=== PATIENT | male | born 1965 | race African-American/Black ===

== ENCOUNTER 2016-03-30 06:06 | Emergency (ER) | payer OTHER ==
[~2016-03-30] VITALS: Ht 177.8 cm; Wt 116.0 kg
[~2016-03-30 06:06] MED LIST: AMLO10 PO; ASPI81CH CHEW; ATOR1TAB18 PO; CALCCHW PO; CARV6.25 PO; DIAZ10 PO; DIPH2%T PO; GABA600T PO; GEMF600 PO; GEMF600T PO; LISI40TA PO; NOVO7030P2 SQ; OXYC15TA PO; PLAV75TA29 PO; [UNRECOGNIZED DRUG - CODE] CHEW; [UNRECOGNIZED DRUG - OTHER] PO; insulin needles SQ
[2016-03-30 06:08] VITALS: BP 141/88; PULSE 89; RESP 18; TEMP 98; O2SAT 98
[2016-03-30] MEDS ORDERED: SODIUM CHLORIDE 0.9% FLUSH 5 ML FLUSH IVF PRN (06:30)
--- NOTE | 2016-03-30 06:42 | PD ---
HPI . Cough Chief Complaint: Respiratory Symptoms Time Seen by Provider: 06:24 Travel History International Travel<30 days: No Contact w/Intl Traveler<30days: No Traveled to known affect area: No History of Present Illness HPI Patient presents with a 3 week history of cough. The cough is productive of clear phlegm. There has been no associated fever. He reports similar problems in the past has been a long time ago. He states that he has used Pro Air in the past but that it has been at least a year since he used it. PFSH Past Medical History Hx Anticoagulant Therapy: Yes (ASA) Asthma: Yes Cancer: No Cardiac Catheterization: Yes (2008) Cardiovascular Problems: Yes ([place], [place]) High Cholesterol: Yes Chest Pain: Yes Coronary Artery Disease: Yes Diabetes: Yes Patient Takes Glucophage: No Diminished Hearing: No Endocrine: Yes Gastrointestinal Disorders: No Glaucoma: No Genitourinary: No Hepatitis: No Hiatal Hernia: No Herniated Disk: Yes Hypertension: Yes Immune Disorder: No Musculoskeletal: Yes (spinal stenosis) Neurologic: No Psychiatric: No Reproductive: No Respiratory: Yes (ASTHMA) Integumentary: No Myocardial Infarction: Yes Thyroid Disease: No Past Surgical History Thoracic Surgery: No Other Surgery: Yes (HERNIA REPAIR) Social History Alcohol Use: No Tobacco Use: Yes (HALF PACK/DAY) Substance Use: No Allergies-Medications (Allergen,Severity, Reaction): Coded Allergies: Advair (Verified Allergy, Severe, HIVE,ITCH, 03/30/16) Bactrim (Verified Allergy, Severe, Rash, 03/30/16) Cortisporin (Verified Allergy, Severe, ears swelling, itch, , 03/30/16) Cortisporin otic Rocephin (Verified Allergy, Severe, Rash, 03/30/16) Reported Meds & Prescriptions Reported Meds & Active Scripts Active Norvasc (Amlodipine Besylate) 10 Mg Tab 10 Mg PO DAILY Atorvastatin (Atorvastatin Calcium) 80 Mg Tab 80 Mg PO HS [insulin needles] Box SQ MONTHLY Reported Aspirin 81 Mg Chew 81 Mg CHEW DAILY Lisinopril 40 Mg Tab 40 Mg PO DAILY Novolin 70-30 Inj (Insulin Human Isoph/Insulin Regular) 1,000 Unit/10 Ml Vial 50 Units SQ DAILY Novolin 70-30 Inj (Insulin Human Isoph/Insulin Regular) 1,000 Unit/10 Ml Vial 30 Units SQ HS Gemfibrozil 600 Mg Tab 600 Mg PO BIDAC Take 30 minutes prior to breakfast and dinner. Gabapentin 600 Mg Tab 1,200 Mg PO TID Coreg (Carvedilol) 6.25 Mg Tab 6.25 Mg PO BID Review of Systems Except as stated in HPI: all other systems reviewed are Neg General / Constitutional: No: Fever, Chills Respiratory: Positive: Cough, Shortness of Breath Physical Exam Narrative GENERAL: Patient has a very persistent cough. SKIN: Warm and dry. HEAD: Atraumatic. Normocephalic. EYES: Pupils equal and round. ENT: No nasal bleeding or discharge. Mucous membranes pink and moist. NECK: Trachea midline. Neck is supple. CARDIOVASCULAR: Regular rate and rhythm. Heart sounds are normal. RESPIRATORY: No accessory muscle use. Prolonged expiratory phase. Expiratory wheezing. GASTROINTESTINAL: Abdomen soft, non-tender, nondistended. MUSCULOSKELETAL: No obvious deformities. No edema. NEUROLOGICAL: Awake and alert. No obvious cranial nerve deficits. Motor grossly within normal limits. Normal speech. PSYCHIATRIC: Appropriate mood and affect; insight and judgment normal. Data Data Last Documented VS Vital Signs Date Time Temp Pulse Resp B/P Pulse Ox O2 Delivery O2 Flow Rate FiO2 03/30/16 06:08 98.0 89 18 141/88 98 Room Air Orders Complete Blood Count With Diff (03/30/16 06:29) Basic Metabolic Panel (Bmp) (03/30/16 06:29) B-Type Natriuretic Peptide (03/30/16 06:29) Ckmb (Isoenzyme) Profile (03/30/16 06:29) Troponin I (03/30/16 06:29) Iv Access Insert/Monitor (03/30/16 06:29) Electrocardiogram (03/30/16 06:29) Ecg Monitoring (03/30/16 06:29) Oximetry (03/30/16 06:29) Oxygen Administration (03/30/16 06:29) Chest, Single Ap (03/30/16 06:29) Sodium Chloride 0.9% Flush (Ns Flush) (03/30/16 06:30) Albuterol-Ipratropium Neb (Duoneb Neb) (03/30/16 06:30) MDM Medical Decision Making Medical Screen Exam Complete: Yes Emergency Medical Condition: Yes Differential Diagnosis Differential diagnosis of dyspnea includes but is not limited to congestive heart failure, pneumonia, wheezing, pneumothorax, pulmonary embolism Narrative Course Patient presents for the evaluation and treatment of cough and shortness of breath. He is allergic to steroids. They cause a rash. He will be evaluated for possible pneumonia or CHF. He will be treated with neb treatments. His care will be turned over to the oncoming physician. Diagnosis Primary Impression: Bronchospasm Condition: Stable Gali Parrish MD Mar 30, 2016 06:42
--- NOTE | 2016-03-30 06:46 | RADRPT ---
EXAM DATE/TIME: 03/30/2016 06:28 [facility] COMPARISON: CHEST SINGLE AP, October 12, 2014, 16:51. INDICATIONS : Cough. MEDICAL HISTORY : Asthma SURGICAL HISTORY : None. ENCOUNTER: Initial ACUITY: 1 day PAIN SCORE: 0/10 LOCATION: Bilateral chest FINDINGS: A single view of the chest demonstrates the lungs to be symmetrically aerated without evidence of mas s, infiltrate or effusion. The cardiomediastinal contours are unremarkable. Osseous structures are intact. CONCLUSION: 1. No acute cardiopulmonary disease. Juanito Man MD on March 30, 2016 at 6:44 Board Certified Radiologist. This report was verified electronically.
[2016-03-30 07:08] VITALS: O2SAT 98
[2016-03-30 07:12] LABS: BASOPHIL # 0.1 TH/MM3 (0-0.2); EOSINOPHIL # 0.3 TH/MM3 (0-0.4); EOSINOPHIL % 3.4 % (0.0-4.0); HEMATOCRIT 42.8 % (39.0-51.0); HEMO FLAGS DIFF FINAL; LYMPHOCYTE # 4.2 TH/MM3 (1.0-4.8); MEAN CORPUSCULAR HEMOGLOBIN 29.5 PG (27.0-34.0); MEAN CORPUSCULAR HGB CONC 34.3 % (32.0-36.0); MONO % 5.8 % (0.0-8.0); NEUT % 43.8 % (16.0-70.0); PLATELET COUNT 291 TH/MM3 (150-450); RED BLOOD COUNT 4.97 MIL/MM3 (4.50-5.90); RED CELL DISTRIBUTION WIDTH 13.5 % (11.6-17.2); WHITE BLOOD COUNT 9.1 TH/MM3 (4.0-11.0)
[2016-03-30] MEDS: RESP: ALBUTEROL 2.5 MG/IPRATROPIUM 0.5 MG NEB (SCH) INH (07:18)
[2016-03-30 07:23] VITALS: O2SAT 96
[2016-03-30 07:27] LABS: ANION GAP 10 MEQ/L (5-15); BICARBONATE 24.9 MEQ/L (21.0-32.0); BLOOD UREA NITROGEN 11 MG/DL (7-18); CHLORIDE 103 MEQ/L (98-107); GLOMERULAR FILTRATION RATE 97 ML/MIN (>89); POTASSIUM 4.1 MEQ/L (3.5-5.1); SODIUM (NA) 138 MEQ/L (136-145)
[2016-03-30 07:31] LABS: CREATINE KINASE 397 U/L (39-308)
[2016-03-30 07:43] LABS: CKMB 0.8 NG/ML (0.5-3.6)
[2016-03-30] MEDS ORDERED: VENTAER INH (09:03)
--- NOTE | 2016-03-30 09:08 | PD ---
Physical Exam Date Seen by Provider: Mar 30, 2016 Time Seen by Provider: 09:00 Narrative The patient was signed out to me by Dr. Parrish, physician who I replaced. We' re awaiting laboratory tests and x-ray results. All tests were within normal limits except for a blood sugar of 190. The patient states he had not taken his insolent today. The patient was given breathing treatments and states he feels "100% better". On examination, his lungs have good air exchange with mild wheezes at the bases. Data Data Last Documented VS Vital Signs Date Time Temp Pulse Resp B/P Pulse Ox O2 Delivery O2 Flow Rate FiO2 03/30/16 07:23 96 21 03/30/16 07:08 Room Air 03/30/16 06:08 98.0 89 18 141/88 Orders Complete Blood Count With Diff (03/30/16 06:29) Basic Metabolic Panel (Bmp) (03/30/16 06:29) B-Type Natriuretic Peptide (03/30/16 06:29) Ckmb (Isoenzyme) Profile (03/30/16 06:29) Troponin I (03/30/16 06:29) Iv Access Insert/Monitor (03/30/16 06:29) Electrocardiogram (03/30/16 06:29) Ecg Monitoring (03/30/16 06:29) Oximetry (03/30/16 06:29) Oxygen Administration (03/30/16 06:29) Chest, Single Ap (03/30/16 06:29) Sodium Chloride 0.9% Flush (Ns Flush) (03/30/16 06:30) Albuterol-Ipratropium Neb (Duoneb Neb) (03/30/16 06:30) CKMB (03/30/16 06:40) CKMB% (03/30/16 06:40) Labs Laboratory Tests Test 03/30/16 06:40 White Blood Count 9.1 TH/MM3 Red Blood Count 4.97 MIL/MM3 Hemoglobin 14.7 GM/DL Hematocrit 42.8 % Mean Corpuscular Volume 86.0 FL Mean Corpuscular Hemoglobin 29.5 PG Mean Corpuscular Hemoglobin 34.3 % Concent Red Cell Distribution Width 13.5 % Platelet Count 291 TH/MM3 Mean Platelet Volume 8.1 FL Neutrophils (%) (Auto) 43.8 % Lymphocytes (%) (Auto) 46.0 % Monocytes (%) (Auto) 5.8 % Eosinophils (%) (Auto) 3.4 % Basophils (%) (Auto) 1.0 % Neutrophils # (Auto) 4.0 TH/MM3 Lymphocytes # (Auto) 4.2 TH/MM3 Monocytes # (Auto) 0.5 TH/MM3 Eosinophils # (Auto) 0.3 TH/MM3 Basophils # (Auto) 0.1 TH/MM3 CBC Comment DIFF FINAL Differential Comment Sodium Level 138 MEQ/L Potassium Level 4.1 MEQ/L Chloride Level 103 MEQ/L Carbon Dioxide Level 24.9 MEQ/L Anion Gap 10 MEQ/L Blood Urea Nitrogen 11 MG/DL Creatinine 0.99 MG/DL Estimat Glomerular Filtration 97 ML/MIN Rate Random Glucose 190 MG/DL Calcium Level 9.2 MG/DL Total Creatine Kinase 397 U/L Creatine Kinase MB 0.8 NG/ML Creatine Kinase MB % 0.2 % Troponin I LESS THAN 0.02 NG/ML B-Type Natriuretic Peptide 3 PG/ML MDM Medical Record Reviewed: Yes Supervised Visit with HAYDEN: No Differential Diagnosis Reactive airway disease versus COPD versus pneumonia versus bronchitis. Narrative Course 51-year-old male with a history of reactive airway disease, hyperlipidemia, hypertension, diabetes mellitus, who presents here with respiratory distress. Patient was given nebulizer treatments and feels much improved. The patient is allergic to Advair and Cortisporin so we will hold off on steroids. He will be given a prescription for albuterol inhaler. He is instructed to follow up with his primary care physician. He is also instructed stop smoking. Diagnosis Primary Impression: Bronchospasm Additional Instruction: Do not use tobacco products. Return if feeling worse. Follow up with primary care physician. Scripts Albuterol 18 GM Inh (Ventolin Hfa 18 GM Inh)90 Mcg/Act Aer2 Puff INH Q6H PRN ( SHORTNESS OF BREATH) #1 INHALER Ref 0 Prov:Bruno Carballo MD 03/30/16 Disposition: 01 DISCHARGE HOME Condition: Stable Bruno Carballo MD Mar 30, 2016 09:08
--- NOTE | 2016-03-30 17:03 | EKG ---
Date Performed: 03/30/2016 Time Performed: 07:04:41 PTAGE: 51 years EKG: Sinus rhythm Vertical QRS axis POSSIBLE INFERIOR MYOCARDIAL INFARCTION Since previous tracing, no significant mike nge noted BORDERLINE ECG PREVIOUS TRACING : 10/12/2014 14.48 DOCTOR: Jim Tan Interpretating Date/Time 03/30/2016 17:01:07
[2016-04-12] MEDS ORDERED: ATOR1TAB18 PO (13:42)
[2016-04-12] MEDS ORDERED: GABA600T PO ×2 (13:44→15:31)
[2016-04-12] MEDS ORDERED: NOVO7030P2 SQ ×2 (15:32→15:39)
[2016-04-12] MEDS ORDERED: CARV6.25 PO ×2 (15:33→15:39)
[2016-05-23] MEDS ORDERED: LISI40TA PO ×2 (14:20→14:21)
[2016-06-24] MEDS ORDERED: CARV6.252 PO (14:42)
[2016-06-24] MEDS ORDERED: HYDR-3535 PO (14:55)
[2016-06-24] MEDS ORDERED: KETO60IN6 IM (14:57)
[2016-06-24] MEDS ORDERED: METH125I2 IM (15:04)
[2016-07-22] MEDS ORDERED: LISI40TA PO (13:13)
[2016-07-22] MEDS ORDERED: AMLO10 PO (13:14)
[2016-07-22] MEDS ORDERED: GEMF600T PO (13:27)
[2016-07-23] MEDS ORDERED: GEMF600T PO (09:33)
== END 2016-03-30 09:49 | disposition home or self-care (01) ==
LOC: NEPC 06:06
DX: J98.01 Acute bronchospasm (principal); R06.2 Wheezing; R94.31 Abnormal electrocardiogram [ECG] [EKG]; I10 Essential (primary) hypertension; E11.9 Type 2 diabetes mellitus without complications; E78.00 Pure hypercholesterolemia, unspecified; F17.200 Nicotine dependence, unspecified, uncomplicated; Z79.4 Long term (current) use of insulin; Z79.82 Long term (current) use of aspirin; Z87.09 Personal history of other diseases of the respiratory system; Z86.79 Personal history of other diseases of the circulatory system; Z87.39 Personal history of other diseases of the musculoskeletal system and connective tissue
CPT/HCPCS: 71010; 80048; 82550; 82552; 83880; 84484; 85025; 93005; 94640; 94664

== ENCOUNTER → 2016-04-30 | Outpatient (CLI) | payer OTHER ==
[~2016-04-30] MED LIST changes: +ACET325T PO; -CALCCHW PO; +CARV6.252 PO; -DIAZ10 PO; -DIPH2%T PO; -GEMF600 PO; +HYDR-3535 PO; +KETO60IN6 IM; +METH125I2 IM; -OXYC15TA PO; -PLAV75TA29 PO; +ROBA750T PO; +TRAM50TA PO; +VENTAER INH; -[UNRECOGNIZED DRUG - CODE] CHEW; -[UNRECOGNIZED DRUG - OTHER] PO
[2016-04-30 07:13] LABS: AUTOMATED NEUTROPHIL # 4.9 TH/MM3 (1.8-7.7); BASOPHIL # 0.1 TH/MM3 (0-0.2); EOSINOPHIL # 0.4 TH/MM3 (0-0.4); EOSINOPHIL % 3.7 % (0.0-4.0); HEMATOCRIT 42.9 % (39.0-51.0); HEMO FLAGS DIFF FINAL; LYMPH % 37.6 % (9.0-44.0); LYMPHOCYTE # 3.7 TH/MM3 (1.0-4.8); MEAN CELL VOLUME 87.1 FL (80.0-100.0); MEAN CORPUSCULAR HEMOGLOBIN 28.3 PG (27.0-34.0); MEAN CORPUSCULAR HGB CONC 32.5 % (32.0-36.0); MONO % 7.1 % (0.0-8.0); NEUT % 50.6 % (16.0-70.0); PLATELET COUNT 255 TH/MM3 (150-450); RED BLOOD COUNT 4.93 MIL/MM3 (4.50-5.90); RED CELL DISTRIBUTION WIDTH 14.2 % (11.6-17.2); WHITE BLOOD COUNT 9.7 TH/MM3 (4.0-11.0)
[2016-04-30 07:53] LABS: ALKALINE PHOSPHATASE 58 U/L (45-117); HDL CHOLESTEROL 43.4 MG/DL (40.0-60.0); TOTAL BILIRUBIN ADULT 0.4 MG/DL (0.2-1.0)
[2016-04-30 08:51] LABS: ALT (GPT) 25 U/L (12-78); ANION GAP 8 MEQ/L (5-15); AST (GOT) 18 U/L (15-37); BICARBONATE 26.2 MEQ/L (21.0-32.0); BLOOD UREA NITROGEN 9 MG/DL (7-18); CHLORIDE 103 MEQ/L (98-107); GLOMERULAR FILTRATION RATE 112 ML/MIN (>89); GLUCOSE,FASTING 146 MG/DL (74-99); LDL CHOLESTEROL 89 MG/DL (0-99); POTASSIUM 4.6 MEQ/L (3.5-5.1); SODIUM (NA) 137 MEQ/L (136-145)
[2016-04-30 16:09] LABS: HEMOGLOBIN A1a 1.1 %; HEMOGLOBIN A1b 2.2 %; HEMOGLOBIN LA1C 2.3 %
== END ==
LOC: CLAB 06:43
PROVIDERS: ATTEND Family Medicine
DX: E11.9 Type 2 diabetes mellitus without complications (principal); E78.5 Hyperlipidemia, unspecified; I10 Essential (primary) hypertension; Z72.0 Tobacco use
CPT/HCPCS: 36415; 80053; 80061; 83036; 84443; 85025

== ENCOUNTER 2016-06-06 10:48 | Observation (INO) | payer OTHER ==
[~2016-06-06] VITALS: Ht 175.3 cm; Wt 111.0 kg
[~2016-06-06 10:48] MED LIST changes: -ACET325T PO; -CARV6.252 PO; -HYDR-3535 PO; -KETO60IN6 IM; -METH125I2 IM; -ROBA750T PO; -TRAM50TA PO
[2016-06-06 10:50] VITALS: BP 136/86; PULSE 78; RESP 20; TEMP 98.7; O2SAT 99
[2016-06-06 12:30] LABS: AUTOMATED NEUTROPHIL # 3.1 TH/MM3 (1.8-7.7); BASOPHIL # 0.1 TH/MM3 (0-0.2); BASOPHIL % 0.8 % (0.0-2.0); EOSINOPHIL # 0.2 TH/MM3 (0-0.4); EOSINOPHIL % 3.1 % (0.0-4.0); HEMATOCRIT 41.5 % (39.0-51.0); HEMO FLAGS DIFF FINAL; LYMPH % 47.7 % (9.0-44.0); LYMPHOCYTE # 3.5 TH/MM3 (1.0-4.8); MEAN CELL VOLUME 86.8 FL (80.0-100.0); MEAN CORPUSCULAR HEMOGLOBIN 28.7 PG (27.0-34.0); MONO % 6.6 % (0.0-8.0); NEUT % 41.8 % (16.0-70.0); PLATELET COUNT 244 TH/MM3 (150-450); RED BLOOD COUNT 4.78 MIL/MM3 (4.50-5.90); RED CELL DISTRIBUTION WIDTH 13.7 % (11.6-17.2); WHITE BLOOD COUNT 7.4 TH/MM3 (4.0-11.0)
[2016-06-06 12:50] VITALS: BP 131/74; PULSE 66; RESP 17; TEMP 99.1; O2SAT 98
[2016-06-06 12:50] LABS: ANION GAP 11 MEQ/L (5-15); BICARBONATE 22.5 MEQ/L (21.0-32.0); BLOOD UREA NITROGEN 7 MG/DL (7-18); CHLORIDE 106 MEQ/L (98-107); GLOMERULAR FILTRATION RATE 126 ML/MIN (>89); POTASSIUM 4.1 MEQ/L (3.5-5.1); SODIUM (NA) 139 MEQ/L (136-145)
[2016-06-06 12:53] LABS: CREATINE KINASE 195 U/L (39-308)
--- NOTE | 2016-06-06 12:54 | PD ---
HPI Chief Complaint: Chest Pain Time Seen by Provider: 12:49 Travel History International Travel<30 days: No Contact w/Intl Traveler<30days: No Traveled to known affect area: No History of Present Illness HPI 51-year-old male with history of hypertension, high cholesterol, diabetes, 2 previous MIs, presents to the ER today because he states that he has had 3 days history of constant substernal chest pains with no radiation. He states that he is currently a 7 out of 10. He has also been having lower back pain with radiation down the legs. He states that there is a lot of burning on his fourth , states that he thinks it is his neuropathy due to diabetes. He states it is poorly controlled with gabapentin. He does not know any exacerbating or alleviating factors. Modifying Factors: None Associated Signs & Symptoms: Chest pain Risk Factors: Previous MIs PFSH Past Medical History Hx Anticoagulant Therapy: Yes (ASA) Asthma: Yes Cancer: No Cardiac Catheterization: Yes (2008) Cardiovascular Problems: Yes ([place], [place]) High Cholesterol: Yes Chest Pain: Yes Coronary Artery Disease: Yes Diabetes: Yes Diminished Hearing: No Endocrine: Yes Gastrointestinal Disorders: No Glaucoma: No Genitourinary: No Hepatitis: No Hiatal Hernia: No Herniated Disk: Yes Hypertension: Yes Immune Disorder: No Musculoskeletal: Yes (spinal stenosis) Neurologic: No Psychiatric: No Reproductive: No Respiratory: Yes (ASTHMA) Integumentary: No Myocardial Infarction: Yes Thyroid Disease: No Past Surgical History Thoracic Surgery: No Other Surgery: Yes (HERNIA REPAIR) Social History Alcohol Use: No Tobacco Use: Yes (HALF PACK/DAY) Substance Use: No Allergies-Medications (Allergen,Severity, Reaction): Coded Allergies: Advair (Verified Allergy, Severe, HIVE,ITCH, 06/06/16) Bactrim (Verified Allergy, Severe, Rash, 06/06/16) Cortisporin (Verified Allergy, Severe, ears swelling, itch, , 06/06/16) Cortisporin otic Rocephin (Verified Allergy, Severe, Rash, 06/06/16) Reported Meds & Prescriptions Reported Meds & Active Scripts Active Lisinopril 40 Mg Tab 40 Mg PO DAILY Novolin 70-30 Inj (Insulin Human Isoph/Insulin Regular) 1,000 Unit/10 Ml Vial 50 Units SQ DAILY 30 Days Coreg (Carvedilol) 6.25 Mg Tab 6.25 Mg PO BID Gabapentin 600 Mg Tab 1,200 Mg PO TID Atorvastatin (Atorvastatin Calcium) 80 Mg Tab 80 Mg PO HS Ventolin Hfa 18 GM Inh (Albuterol Sulfate) 90 Mcg/Act Aer 2 Puff INH Q6H PRN Norvasc (Amlodipine Besylate) 10 Mg Tab 10 Mg PO DAILY [insulin needles] Box SQ MONTHLY Reported Aspirin 81 Mg Chew 81 Mg CHEW DAILY Novolin 70-30 Inj (Insulin Human Isoph/Insulin Regular) 1,000 Unit/10 Ml Vial 30 Units SQ HS Gemfibrozil 600 Mg Tab 600 Mg PO BIDAC Take 30 minutes prior to breakfast and dinner. Review of Systems Except as stated in HPI: all other systems reviewed are Neg Physical Exam Narrative GENERAL: Well-developed middle age male patient currently not in acute distress. Awake and oriented 3. SKIN: Focused skin assessment warm/dry. HEAD: Atraumatic. Normocephalic. EYES: Pupils equal and round. No scleral icterus. No injection or drainage. ENT: No nasal bleeding or discharge. Mucous membranes pink and moist. NECK: Trachea midline. No JVD. CARDIOVASCULAR: Regular rate and rhythm. No murmur appreciated. Pulses are present and equal bilaterally. RESPIRATORY: No accessory muscle use. Clear to auscultation. Breath sounds equal bilaterally. GASTROINTESTINAL: Abdomen soft, non-tender, nondistended. Hepatic and splenic margins not palpable. MUSCULOSKELETAL: No obvious deformities. No clubbing. No cyanosis. No edema. NEUROLOGICAL: Awake and alert. No obvious cranial nerve deficits. Motor grossly within normal limits. Normal speech. PSYCHIATRIC: Appropriate mood and affect; insight and judgment normal. Data Data Last Documented VS Vital Signs Date Time Temp Pulse Resp B/P Pulse Ox O2 Delivery O2 Flow Rate FiO2 06/06/16 12:50 99.1 66 17 131/74 98 Room Air Orders Electrocardiogram (06/06/16 ) Complete Blood Count With Diff (06/06/16 11:56) Basic Metabolic Panel (Bmp) (06/06/16 11:56) Ckmb (Isoenzyme) Profile (06/06/16 11:56) Troponin I (06/06/16 11:56) Chest, Single Ap (06/06/16 12:49) Aspirin (Aspirin) (06/06/16 13:00) Nitroglycerin 2% Oint (Nitroglycerin 2% (06/06/16 13:00) CKMB (06/06/16 12:15) CKMB% (06/06/16 12:15) Labs Laboratory Tests Test 06/06/16 12:15 White Blood Count 7.4 TH/MM3 Red Blood Count 4.78 MIL/MM3 Hemoglobin 13.7 GM/DL Hematocrit 41.5 % Mean Corpuscular Volume 86.8 FL Mean Corpuscular Hemoglobin 28.7 PG Mean Corpuscular Hemoglobin 33.0 % Concent Red Cell Distribution Width 13.7 % Platelet Count 244 TH/MM3 Mean Platelet Volume 7.7 FL Neutrophils (%) (Auto) 41.8 % Lymphocytes (%) (Auto) 47.7 % Monocytes (%) (Auto) 6.6 % Eosinophils (%) (Auto) 3.1 % Basophils (%) (Auto) 0.8 % Neutrophils # (Auto) 3.1 TH/MM3 Lymphocytes # (Auto) 3.5 TH/MM3 Monocytes # (Auto) 0.5 TH/MM3 Eosinophils # (Auto) 0.2 TH/MM3 Basophils # (Auto) 0.1 TH/MM3 CBC Comment DIFF FINAL Differential Comment Sodium Level 139 MEQ/L Potassium Level 4.1 MEQ/L Chloride Level 106 MEQ/L Carbon Dioxide Level 22.5 MEQ/L Anion Gap 11 MEQ/L Blood Urea Nitrogen 7 MG/DL Creatinine 0.79 MG/DL Estimat Glomerular Filtration 126 ML/MIN Rate Random Glucose 71 MG/DL Calcium Level 9.8 MG/DL Total Creatine Kinase 195 U/L Creatine Kinase MB 0.5 NG/ML Troponin I LESS THAN 0.02 NG/ML MDM Medical Decision Making Medical Screen Exam Complete: Yes Emergency Medical Condition: Yes Medical Record Reviewed: Yes Interpretation(s) EKG shows NSR, no ST elevation or depression, and no arrhythmias. No significant T-wave inversions. Laboratory Tests Test 06/06/16 12:15 Lymphocytes (%) (Auto) 47.7 % (9.0-44.0) Random Glucose 71 MG/DL (74-106) Troponin I LESS THAN 0.02 NG/ML (0.02-0.05) CHEST X-RAY: No infiltrate, pneumothorax or mediastinal widening. Differential Diagnosis Chest painACS versus costochondritis versus pneumonia Narrative Course Chest x-ray, EKG, and cardiac enzymes were unremarkable. Considering patient's previous history of IA, my plan would be to admit the patient further evaluation a chest pain. Patient was given aspirin and nitroglycerin in the ER. Diagnosis Primary Impression: Chest pain Additional Impression: Disease related peripheral neuropathy Admitting Information Admitting Physician Requests: it Keke Montgomery MD Jun 06, 2016 12:54
[2016-06-06] MEDS ORDERED: NITROGLYCERIN 2% OINT 1 GM PACKET TOPICAL ONE (13:00)
[2016-06-06] MEDS ORDERED: ASPIRIN 325 MG TAB PO ONE (13:00)
[2016-06-06 13:05] LABS: CKMB 0.5 NG/ML (0.5-3.6)
[2016-06-06] MEDS ORDERED: SODIUM CHLORIDE 0.9% FLUSH 10 ML FLUSH IV FLUSH PRN (15:30)
[2016-06-06] MEDS ORDERED: ONDANSETRON HCL 4 MG/2 ML VIAL IV PRN (15:30)
[2016-06-06] MEDS ORDERED: ACETAMINOPHEN 500 MG CPLT PO PRN (15:30)
[2016-06-06] MEDS ORDERED: NITROGLYCERIN 0.4 MG SL 25 TABS/BTL SL PRN (15:30)
[2016-06-06] MEDS ORDERED: ePHEDrine/NS 25 MG/5 ML SYR IV PRN (15:45)
[2016-06-06] MEDS ORDERED: fentaNYL 2MCG-BUPIV 0.125% 100 ML EPIDURAL SCH (15:45)
[2016-06-06] MEDS ORDERED: NO SYSTEM NARCOTICS PRN (15:45)
[2016-06-06] MEDS ORDERED: DO NOT ADMINISTER ANTICOAGULANTS PRN (15:45)
[2016-06-06 15:50] VITALS: O2SAT 99
--- NOTE | 2016-06-06 15:58 | RADRPT ---
EXAM DATE/TIME: 06/06/2016 13:20 [facility] COMPARISON: CHEST SINGLE AP, March 30, 2016, 6:28. INDICATIONS : Chest pain. MEDICAL HISTORY : Hypertension. Diabetes mellitus type II. SURGICAL HISTORY : None. ENCOUNTER: Initial ACUITY: 1 day PAIN SCORE: 5/10 LOCATION: Left upper chest FINDINGS: A single view of the chest demonstrates the lungs to be symmetrically aerated without evidence of mas s, infiltrate or effusion. The cardiomediastinal contours are unremarkable. Osseous structures are intact. There are overlying electrocardiogram leads. CONCLUSION: No acute disease. Reg Bryan MD on June 06, 2016 at 15:56 Board Certified Radiologist. This report was verified electronically.
--- NOTE | 2016-06-06 16:27 | HHI.HP ---
HPI Primary Care Physician Lili Torrez MD Chief Complaint Chest and back pain History of Present Illness 51-year-old male with diabetes, hypertension, hyperlipidemia, and reports 2 "mild heart attacks" presents to the emergency room for further evaluation of chest pain and back pain. Chest pain onset Friday. Nonexertional. Location left anterior chest radiating to his left shoulder. Characterized as a gradual squeezing dull pain. Duration has been intermittent with waxing and waning in severity over the course of a few days. Pain has not gone completely away when pain is at its worst duration is a few minutes. Associated symptoms include shortness of breath and he states it hurts to take a deep breath. No nausea vomiting or diaphoresis. No known precipitating factors no known relieving factors. In fact he states his morning his chest pain is tolerable and he actually came to the emergency room for further evaluation of back pain. Endorses this pain is not similar to his past 2 "mild heart attacks" his dose felt more of a severe pulling sensation with associated symptoms of nausea and diaphoresis. In regards to his back pain, endorses chronic mid and low back pain and spinal stenosis and a herniated disc L4 and L5. Has not seen pain management since December 2015 due to financial reasons. Ran out of his oxycodone and morphine in March. States he only used pain medication when he absolutely needed to. Review of Systems General: No fatigue,weakness, fever, chills, or recent illness HEENT: No [place], no vision changes, no dysphasia CV: As stated above. No current chest pain or pressure. No palpitations or dizziness RESP: No SOB, cough, wheeze. History of asthma, rare use of albuterol. GI: No nausea, vomiting, bowel changes, diarrhea, constipation, pain, distention , melena, blood in the stool. No change in appetite, no unintentional weight gain or weight loss : No dysuria, urgency, frequency EXT: No lower leg edema, bilateral ankle and feet neuropathy MS: Chronic back pain. Unable to afford pain management physician, last seen December 2015. No change in ROM. Walks with a cane. NEURO: No change in memory, LOC, motor/sensory deficits PSYCH: No anxiety, depression, or suicidal ideation SKIN: No rashes, no concerning lesions Past Family Social History Allergies: Coded Allergies: Advair (Verified Allergy, Severe, HIVE,ITCH, 06/06/16) Bactrim (Verified Allergy, Severe, Rash, 06/06/16) Cortisporin (Verified Allergy, Severe, ears swelling, itch, , 06/06/16) Cortisporin otic Rocephin (Verified Allergy, Severe, Rash, 06/06/16) Past Medical History Diabetes, hypertension, hyperlipidemia, asthma, chronic back pain, spinal stenosis, herniated disc L4 and L5, neuropathy, 2 "mild heart attacks" Past Surgical History Hernia repair as a child Reported Medications Reported Meds & Active Scripts Active Lisinopril 40 Mg Tab 40 Mg PO DAILY Novolin 70-30 Inj (Insulin Human Isoph/Insulin Regular) 1,000 Unit/10 Ml Vial 50 Units SQ DAILY 30 Days Coreg (Carvedilol) 6.25 Mg Tab 6.25 Mg PO BID Gabapentin 600 Mg Tab 1,200 Mg PO TID Atorvastatin (Atorvastatin Calcium) 80 Mg Tab 80 Mg PO HS Ventolin Hfa 18 GM Inh (Albuterol Sulfate) 90 Mcg/Act Aer 2 Puff INH Q6H PRN Norvasc (Amlodipine Besylate) 10 Mg Tab 10 Mg PO DAILY [insulin needles] Box SQ MONTHLY Reported Aspirin 81 Mg Chew 81 Mg CHEW DAILY Novolin 70-30 Inj (Insulin Human Isoph/Insulin Regular) 1,000 Unit/10 Ml Vial 30 Units SQ HS Gemfibrozil 600 Mg Tab 600 Mg PO BIDAC Take 30 minutes prior to breakfast and dinner. Active Ordered Medications Current Medications Medications (Trade) Dose Ordered Sig/Valentino Route Start Time Stop Time Status Last Admin (NS Flush) 2 ml UNSCH PRN IV FLUSH 06/06/16 15:30 (NS Flush) 2 ml BID IV FLUSH 06/06/16 21:00 (Tylenol) 500 mg Q4H PRN PO 06/06/16 15:30 (Zofran Inj) 4 mg Q6H PRN IV 06/06/16 15:30 (Nitrostat Sl) 0.4 mg Q5M PRN SL 06/06/16 15:30 (Aspirin) 325 mg DAILY PO 06/07/16 09:00 Family History Noncontributory for early onset cardiovascular disease. Endorses strong family history of diabetes and hypertension. Maternal grandmother had open heart surgery age 65. Mother has had 3 strokes. Social History Known diabetes, hypertension, and hyperlipidemia. Recently quit smoking 1 month ago. Prior to that he smoked a half a pack of cigarettes for approximately 30 years. Denies any alcohol or illegal drug use. He is currently unemployed. Past cardiac testing 08/24/14 Ashley scanno reversible perfusion, EF 67% 10/31/11 cardiac catheterization mild luminal irregularities, LVF 60 %, no significant disease 2009 cardiac catheterization [facility] no intervention. He believes he has had 2 "mild heart attacks"first one in 1998 although they did not perform a catheterization or any stress testing and again in 1997 no catheterization, intervention, or stress testing at that time. Denies any drug use during these events. Physical Exam Vital Signs Vital Signs Date Time Temp Pulse Resp B/P Pulse Ox O2 Delivery O2 Flow Rate FiO2 06/06/16 12:50 99.1 66 17 131/74 98 Room Air 06/06/16 12:50 60 16 98 Room Air 06/06/16 10:50 98.7 78 20 136/86 99 Room Air Physical Exam GENERAL: Alert WN, WD, NAD, pleasant, obese male HEAD: NC, AT EYES: Sclera clear, conjunctiva without injection, pupils equal and round ENT: Mucous membranes pink and moist NECK: Supple, no masses, trachea midline CV: RRR, without murmur, rub, gallop, no JVD, S1-S2 no S3-S4. No carotid or femoral bruits RESP: Clear lungs throughout bilateral, no crackles, wheeze, rhonchi, symmetrical chest rise, nonlabored, able to speak in full sentences ABD: Soft, obese, NT, ND, no masses, positive bowel tones EXT: Pulses +24, no dependent edema MS: Normal tone 4 extremities, nontender, no obvious deformities, full range of motion NEURO: CN II through CN XII grossly intact, motor strength 5/5, gait WNL PSYCH: A+O 3, pleasant affect, appropriate speech, appropriate mood and affect , insight and judgment SKIN: Normal turgor, normal texture, no lesions, no rashes Laboratory Laboratory Tests Test 06/06/16 12:15 White Blood Count 7.4 Red Blood Count 4.78 Hemoglobin 13.7 Hematocrit 41.5 Mean Corpuscular Volume 86.8 Mean Corpuscular Hemoglobin 28.7 Mean Corpuscular Hemoglobin 33.0 Concent Red Cell Distribution Width 13.7 Platelet Count 244 Mean Platelet Volume 7.7 Neutrophils (%) (Auto) 41.8 Lymphocytes (%) (Auto) 47.7 Monocytes (%) (Auto) 6.6 Eosinophils (%) (Auto) 3.1 Basophils (%) (Auto) 0.8 Neutrophils # (Auto) 3.1 Lymphocytes # (Auto) 3.5 Monocytes # (Auto) 0.5 Eosinophils # (Auto) 0.2 Basophils # (Auto) 0.1 CBC Comment DIFF FINAL Differential Comment Sodium Level 139 Potassium Level 4.1 Chloride Level 106 Carbon Dioxide Level 22.5 Anion Gap 11 Blood Urea Nitrogen 7 Creatinine 0.79 Estimat Glomerular Filtration 126 Rate Random Glucose 71 Calcium Level 9.8 Total Creatine Kinase 195 Creatine Kinase MB 0.5 Troponin I LESS THAN 0.02 Result Diagram: 06/06/16 1215 06/06/16 1215 Imaging Last Impressions Chest X-Ray 06/06/16 1249 Signed Impressions: Service Date/Time: May 13:20 - CONCLUSION: No acute disease. Reg Bryan MD Course EKGs 2 EKGs show normal sinus rhythm, no ST or T-segment changes, with Q waves seen in leads 3 and aVF Assessment and Plan Assessment and Plan #1 Chest painadmitted to chest pain center. Will rule out with completing 3 sets of EKGs, cardiac enzymes, and monitor overnight. Will be seen and evaluated by Dr. Juanito Zelaya in a.m. Discussed the likelihood of chemical stress test in the morning . Chest discomfort atypical likely musculoskeletal however due to his multiple risk factors paired with no recent stress testing rehab director occupational therapist may decide for further testing. Patient agreeable to plan a care. #2 DiabetesSSI low dose, hold novel and 70/30. Per patient record 05/02/16 hemoglobin A1c was 7.6%. Patient endorses lifestyle modifications and adherence to diabetic medication and hemoglobin A1c is down from 13%. #3 Hyperlipidemiacontinue atorvastatin and gemfibrozil #4 Hypertensioncontinue lisinopril, amlodipine, and Coreg #5 Musculoskeletal painToradol 30 mg IV for a total of 3 doses, Lortab 10/325 PRN Shweta Condon Jun 06, 2016 16:27
[2016-06-06 17:02] LABS: CREATINE KINASE 225 U/L (39-308)
[2016-06-06 17:15] LABS: CKMB LESS THAN 0.5 NG/ML (0.5-3.6)
[2016-06-06] MEDS ORDERED: GLUCAGON 1 MG/ML VIAL OTHER PRN (18:00)
[2016-06-06] MEDS ORDERED: DEXTROSE 50% IN WATER 50 ML VIAL(D50) IV PUSH PRN (18:00)
[2016-06-06] MEDS ORDERED: KETOROLAC TROMETHAMINE 30 MG/ML (IVP) VIAL IV PUSH PRN (18:00)
[2016-06-06] MEDS: GEMFIBROZIL 600 MG TAB PO SCH (18:00)
[2016-06-06] MEDS: GABAPENTIN 300 MG CAP PO SCH (19:00)
[2016-06-06] MEDS: ACETAMINOPHEN/HYDROcodone 325 MG/10 MG TAB PO PRN ×2 (19:00→22:58)
[2016-06-06 19:20] LABS: CREATINE KINASE 176 U/L (39-308)
[2016-06-06 19:34] VITALS: BP 118/73; PULSE 62; RESP 19; TEMP 98.2; O2SAT 96
[2016-06-06] MEDS: INSULIN ASPART SUPPLEMENTAL SCALE SQ SCH (19:50)
[2016-06-06] MEDS: CARVEDILOL 6.25 MG TAB PO SCH (19:50)
[2016-06-06] MEDS: SODIUM CHLORIDE 0.9% FLUSH 10 ML FLUSH IV FLUSH SCH (19:50)
[2016-06-06] MEDS ORDERED: ATORVASTATIN 80 MG TAB PO SCH (21:00)
[2016-06-06 23:26] VITALS: BP 105/64; PULSE 64; RESP 20; TEMP 98.2; O2SAT 100
[2016-06-07 04:50] VITALS: BP 125/77; PULSE 64; RESP 20; TEMP 98.1; O2SAT 97
[2016-06-07] MEDS: GEMFIBROZIL 600 MG TAB PO SCH (06:02)
[2016-06-07] MEDS: ACETAMINOPHEN/HYDROcodone 325 MG/10 MG TAB PO PRN (06:02)
[2016-06-07] MEDS: INSULIN ASPART SUPPLEMENTAL SCALE SQ SCH (06:02)
[2016-06-07] MEDS ORDERED: ASPIRIN 325 MG TAB PO SCH (09:00)
[2016-06-07] MEDS ORDERED: LISINOPRIL 20 MG TAB PO SCH (09:00)
[2016-06-07] MEDS ORDERED: REGADENOSON INJ 0.4 MG/5 ML SYR ONE (09:20)
[2016-06-07] MEDS: GABAPENTIN 300 MG CAP PO SCH (10:30)
[2016-06-07] MEDS: CARVEDILOL 6.25 MG TAB PO SCH (10:30)
[2016-06-07] MEDS: SODIUM CHLORIDE 0.9% FLUSH 10 ML FLUSH IV FLUSH SCH (10:31)
--- NOTE | 2016-06-07 10:47 | RADRPT ---
EXAM DATE/TIME: 06/07/2016 08:23 [facility] COMPARISON: MYOCARDIAL PERF PHARM SPECT, GATED W/EF, August 24, 2014, 9:51. INDICATIONS : Substernal chest pain for 3 days. Lower back pain radiating down legs. Angina. DOSE: 35.0 mCi Tc99m Myoview at stress. 11.0 mCi Tc99m Myoview at rest. 0.4 mg Lexiscan STRESS SYMPTOMS: Dyspnea. EJECTION FRACTION: 58% MEDICAL HISTORY : Myocardial infarction. Hypercholesterolemia. Diabetes mellitus type 2. Hypertension. Asthma. Ex-smoke r. SURGICAL HISTORY : None. ENCOUNTER: Initial ACUITY: 3 days PAIN SCALE: 7/10 LOCATION: Substernal chest TECHNIQUE: The patient underwent pharmacologic stress with infusion of prescribed dose. Continuous ECG tracing was monitored during stress. Gated SPECT imaging was performed after stress and conventional SPECT i maging was performed at rest. The examination was performed on a SPECT/CT scanner, both attenuation and non-corrected datasets were reviewed. FINDINGS: DISTRIBUTION: The maximum perfused segment at stress is in the septum and inferior wall wall. PERFUSION STUDY: There is minimal redistribution in the high anterior wall of borderline significance. GATED STUDY: There is intact wall motion and thickening without hypokinetic or dyskinetic segments. CONCLUSION: Minimal redistribution suggesting possible ischemia high anterior wall of borderline significance. W all motion across this segment is normal.. RISK CATEGORY: Low (<1% Annual Mortality Rate) Boris Valles MD FACR on June 07, 2016 at 10:42 Board Certified Radiologist. This report was verified electronically.
--- NOTE | 2016-06-07 11:02 | HHI.DCPOC ---
Discharge Care Plan Diagnosis: (1) Chest pain (2) Hypertension (3) Hyperlipidemia (4) DM (diabetes mellitus) Goals to Promote Your Health * To prevent worsening of your condition and complications * To maintain your health at the optimal level Directions to Meet Your Goals Take your medications as prescribed Follow your dietary instruction Follow activity as directed Keep your appointments as scheduled Take your immunizations and boosters as scheduled If your symptoms worsen call your PCP, if no PCP go to Urgent Care Center or Emergency Room Smoking is Dangerous to Your Health. Avoid second hand smoke Call the 24-hour hour crisis hotline for domestic abuse at Kee Escobar Jun 07, 2016 11:02
--- NOTE | 2016-06-07 15:07 | EKG ---
Date Performed: 06/06/2016 Time Performed: 18:44:11 PTAGE: 51 years EKG: SUPRAVENTRICULAR RHYTHM POSSIBLE INFERIOR MYOCARDIAL INFARCTION BORDERLINE ECG INTERPRETATI ON BASED ON A DEFAULT AGE OF 42 YEARS NO PREVIOUS TRACING DOCTOR: Juanito Zelaya Interpretating Date/Time 06/07/2016 15:05:59
--- NOTE | 2016-06-07 15:08 | EKG ---
Date Performed: 06/06/2016 Time Performed: 11:02:08 PTAGE: 51 years EKG: Sinus rhythm NORMAL ECG PREVIOUS TRACING : 03/30/2016 07.04 Since previous tracing, no significant change noted DOCTOR: Juanito Zelaya Interpretating Date/Time 06/07/2016 15:07:02
--- NOTE | 2016-06-07 15:08 | EKG ---
Date Performed: 06/06/2016 Time Performed: 15:58:07 PTAGE: 51 years EKG: SUPRAVENTRICULAR RHYTHM ABNORMAL ECG PREVIOUS TRACING : 06/06/2016 11.02 Since previous tracing, no significant change noted DOCTOR: Juanito Zelaya Interpretating Date/Time 06/07/2016 15:06:36
--- NOTE | 2016-06-07 15:10 | TR ---
Date Performed: 06/07/2016 Time Performed: 09:25:01 DOCTOR: Juanito Zelaya DRUG LIST: CLINICAL HISTORY: REASON FOR TEST: REASON FOR ENDING: OBSERVATION: CONCLUSION: Lexiscan stress test was performed under standard four minute protocol. Radionuclid e was injected one minute prior to ending the test. No electrocardiographic abormalities were present to suggest ischemia. Nuclear imaging and interpretation are pending. COMMENTS:
[2016-06-24] MEDS ORDERED: CARV6.252 PO (14:42)
[2016-06-24] MEDS ORDERED: HYDR-3535 PO (14:55)
[2016-06-24] MEDS ORDERED: KETO60IN6 IM (14:57)
[2016-06-24] MEDS ORDERED: METH125I2 IM (15:04)
[2016-07-22] MEDS ORDERED: LISI40TA PO (13:13)
[2016-07-22] MEDS ORDERED: AMLO10 PO (13:14)
[2016-07-22] MEDS ORDERED: GEMF600T PO (13:27)
[2016-07-23] MEDS ORDERED: GEMF600T PO (09:33)
== END 2016-06-07 12:28 | disposition home or self-care (01) ==
LOC: NEPC 10:48 → NEDA 14:24 → NEPHCDU 16:39
PROVIDERS: ADMIT Internal Medicine Interventional Cardiology; ATTEND Internal Medicine Interventional Cardiology
DX: R07.89 Other chest pain (principal); E11.40 Type 2 diabetes mellitus with diabetic neuropathy, unspecified; E78.5 Hyperlipidemia, unspecified; I10 Essential (primary) hypertension; M79.1 Myalgia; J45.909 Unspecified asthma, uncomplicated; E78.00 Pure hypercholesterolemia, unspecified; M48.06 Spinal stenosis, lumbar region; M51.26 Other intervertebral disc displacement, lumbar region; I25.10 Atherosclerotic heart disease of native coronary artery without angina pectoris; I25.2 Old myocardial infarction; Z88.1 Allergy status to other antibiotic agents; Z88.8 Allergy status to other drugs, medicaments and biological substances; Z79.4 Long term (current) use of insulin; Z79.82 Long term (current) use of aspirin; Z87.891 Personal history of nicotine dependence
CPT/HCPCS: 71010; 78452; 80048; 82550; 82552; 82948; 84484; 85025; 93005; 93017; 99285; A9502; G0378; J2785

== ENCOUNTER 2016-06-15 12:20 | Emergency (ER) | payer OTHER ==
[~2016-06-15] VITALS: Ht 175.3 cm; Wt 110.5 kg
[2016-06-15 12:22] VITALS: BP 134/83; PULSE 80; RESP 20; TEMP 98; O2SAT 100
--- NOTE | 2016-06-15 12:29 | PD ---
Physical Exam Date Seen by Provider: June 15, 2016 Time Seen by Provider: 12:27 Narrative 51 year old male presents to the emergency department for evaluation of lower back pain that started worsening a few months ago, but states for the past couple of days he has been unable to get out of bed due to the pain. He reports history of spinal stenosis, herniated discs, neuropathy, DM, HTN. Patient denies history of IVDU. No fevers, chills. No loss of bowel or bladder control. Patient has chronic paresthesias to bilateral lower extremities due to neuropathy. No recent injury. Vital signs reviewed. Patient seen in triage, awaiting bed placement. Data Data Last Documented VS Vital Signs Date Time Temp Pulse Resp B/P Pulse Ox O2 Delivery O2 Flow Rate FiO2 06/15/16 12:22 98.0 80 20 134/83 100 Room Air MDM Supervised Visit with HAYDEN: Julia Richards June 15, 2016 12:29
--- NOTE | 2016-06-15 12:33 | PD ---
HPI Chief Complaint: Back/ Neck Pain or Injury Time Seen by Provider: 12:33 Travel History International Travel<30 days: No Contact w/Intl Traveler<30days: No Traveled to known affect area: No History of Present Illness HPI 51-year-old male with PMH of T2 DM, HTN, HLD, chronic lower back pain presents to the ED for evaluation of "months"long history of worsening back pain. Patient ambulates with a cane for the last 4 years. He endorses worsening low pain with radiation into the bilateral buttocks which has kept him in bed for "the last few days." He denies recent injury or overuse. He denies saddle anesthesia or urinary or fecal incontinence. He endorses chronic tingling in bilateral legs which he attributes to his diabetic neuropathy. Denies weakness or limitations to range of motion of the legs. States his symptoms have not changed in character, they have only become more painful. He's been wearing a brace that a friend gave him. He states that he left his pain management doctor last year sometime. He does not have a neurologist. He is followed by Dr. Torrez. [facility] Past Medical History Hx Anticoagulant Therapy: Yes (ASA 81MG) Asthma: Yes Heart Rhythm Problems: Yes Cancer: No Cardiac Catheterization: Yes Cardiovascular Problems: Yes High Cholesterol: Yes Chest Pain: Yes Coronary Artery Disease: Yes Diabetes: Yes Diminished Hearing: No Endocrine: Yes Gastrointestinal Disorders: No Glaucoma: No Genitourinary: No Hepatitis: No Hiatal Hernia: No Herniated Disk: Yes Hypertension: Yes Immune Disorder: No Musculoskeletal: Yes (spinal stenosis) Neurologic: Yes (neuropathy) Psychiatric: No Reproductive: No Respiratory: Yes Integumentary: No Myocardial Infarction: Yes Thyroid Disease: No Past Surgical History Coronary Artery Bypass Graft: No Thoracic Surgery: No Other Surgery: Yes (HERNIA REPAIR) Social History Alcohol Use: No Tobacco Use: No (quit) Substance Use: No Allergies-Medications (Allergen,Severity, Reaction): Coded Allergies: Advair (Verified Allergy, Severe, HIVE,ITCH, 06/15/16) Bactrim (Verified Allergy, Severe, Rash, 06/15/16) Cortisporin (Verified Allergy, Severe, ears swelling, itch, , 06/15/16) Cortisporin otic Rocephin (Verified Allergy, Severe, Rash, 06/15/16) Reported Meds & Prescriptions Reported Meds & Active Scripts Active Tramadol (Tramadol HCl) 50 Mg Tab 50 Mg PO Q8H PRN Acetaminophen 325 Mg Tab 650 Mg PO Q6HR PRN Robaxin (Methocarbamol) 750 Mg Tab 750 Mg PO TID Lisinopril 40 Mg Tab 40 Mg PO DAILY Novolin 70-30 Inj (Insulin Human Isoph/Insulin Regular) 1,000 Unit/10 Ml Vial 50 Units SQ DAILY 30 Days Gabapentin 600 Mg Tab 1,200 Mg PO TID Atorvastatin (Atorvastatin Calcium) 80 Mg Tab 80 Mg PO HS Ventolin Hfa 18 GM Inh (Albuterol Sulfate) 90 Mcg/Act Aer 2 Puff INH Q6H PRN Norvasc (Amlodipine Besylate) 10 Mg Tab 10 Mg PO DAILY Reported Aspirin 81 Mg Chew 81 Mg CHEW DAILY Novolin 70-30 Inj (Insulin Human Isoph/Insulin Regular) 1,000 Unit/10 Ml Vial 30 Units SQ HS Gemfibrozil 600 Mg Tab 600 Mg PO BIDAC Take 30 minutes prior to breakfast and dinner. Review of Systems Except as stated in HPI: all other systems reviewed are Neg Physical Exam Narrative GENERAL: Well-nourished, well-developed black male, standing at bedside, in no acute distress. SKIN: Focused skin assessment warm/dry. HEAD: Normocephalic. EYES: No scleral icterus. No injection or drainage. NECK: Supple, trachea midline. No JVD or lymphadenopathy. CARDIOVASCULAR: Regular rate and rhythm without murmurs, gallops, or rubs. RESPIRATORY: Breath sounds equal bilaterally. No accessory muscle use. GASTROINTESTINAL: Abdomen soft, non-tender, nondistended. MUSCULOSKELETAL: No cyanosis, or edema. Patient is ambulatory with a cane. 5/ 5 strength of dorsiflexion, plantar flexion, knee flexion bilaterally. BACK: No obvious deformity. No CVA tenderness. Mild tenderness to palpation in the midline in the lumbar area. Tender to palpation of the paraspinal musculature in the lumbar and thoracic spine areas. Data Data Last Documented VS Vital Signs Date Time Temp Pulse Resp B/P Pulse Ox O2 Delivery O2 Flow Rate FiO2 06/15/16 12:22 98.0 80 20 134/83 100 Room Air MDM Medical Decision Making Medical Screen Exam Complete: Yes Emergency Medical Condition: Yes Differential Diagnosis acute on chronic back pain versus neuropathy versus sciatica versus muscle spasm versus musculoskeletal pain versus other Narrative Course 51-year-old male with PMH of T2 DM, HTN, HLD, chronic lower back pain presents to the ED for evaluation of "months"long history of worsening back pain. He endorses worsening low pain with radiation into the bilateral buttocks which has kept him in bed for "the last few days." He denies recent injury or overuse. He denies saddle anesthesia or urinary or fecal incontinence. He endorses chronic tingling in bilateral legs which he attributes to his diabetic neuropathy. Denies weakness or limitations to range of motion of the legs. States his symptoms have not changed in character, they have only become more painful. Patient ambulates with a cane for the last 4 years. He states that he left his pain management doctor last year sometime. He does not have a neurologist. He is followed by Dr. Torrez. Vital reviewed. Physical exam reveals an obese black male, standing at bedside, in no acute distress. There is mild midline TTP of the lumbar spine as well as the paraspinal musculature in the thoracic and lumbar areas. 5/5 strength of dorsiflexion, plantar flexion , knee flexion bilaterally. I offered the patient an injection of Toradol and Norflex which he declined, stating that Toradol makes his pain worse. He is prescribed a short course of acetaminophen, Robaxin and tramadol. He is instructed to follow-up with Dr. Torrez for outpatient imaging and further evaluation of his chronic back pain. He indicated understanding of the instructions and is agreeable to the care plan. The patient is stable and discharged home. Diagnosis Primary Impression: Acute exacerbation of chronic low back pain Referrals: Lili Torrez MD Patient Instructions: Chronic Back Pain (ED), General Instructions Additional Instructions: Rest, hydrate. A mixture of rest and normal, gentle activities as best for back pain. Resume normal, gentle activities as tolerated. No strenuous physical activities for the next few days Applying ice or heat to areas with sore muscles may help to improve your patient. Do not apply ice/ heat for longer than 20 m/h. Take anti-inflammatories and muscle relaxants as prescribed. Tramadol for pain greater than [address]. [address] while taking muscle relaxants or narcotic pain medications. Follow-up with Dr. Torrez this week for further evaluation and outpatient imaging as discussed. Return to the ED for any urgent or emergent medical condition. Med/Other Pt SpecificInfo: Prescription(s) given Scripts Tramadol 50 Mg Tab50 Mg PO Q8H PRN (PAIN GREATER THAN 6) #15 TAB Ref 0 Prov:Keke Montgomery MD 06/15/16 Acetaminophen 325 Mg [id number] Mg PO Q6HR PRN (PAIN SCALE 1 TO 10) #20 TAB Prov:Keke Montgomery MD 06/15/16 Methocarbamol (Robaxin)750 Mg [id number] Mg PO TID #15 TAB Ref 0 Prov:Keke Montgomery MD 06/15/16 Disposition: 01 DISCHARGE HOME Condition: Stable Agustina Barlow June 15, 2016 12:33
[2016-06-15] MEDS ORDERED: ACET325T PO (13:13)
[2016-06-15] MEDS ORDERED: ROBA750T PO (13:13)
[2016-06-15] MEDS ORDERED: TRAM50TA PO ×2 (13:13→13:14)
[2016-06-24] MEDS ORDERED: CARV6.252 PO (14:42)
[2016-06-24] MEDS ORDERED: HYDR-3535 PO (14:55)
[2016-06-24] MEDS ORDERED: KETO60IN6 IM (14:57)
[2016-06-24] MEDS ORDERED: METH125I2 IM (15:04)
[2016-07-22] MEDS ORDERED: LISI40TA PO (13:13)
[2016-07-22] MEDS ORDERED: AMLO10 PO (13:14)
[2016-07-22] MEDS ORDERED: GEMF600T PO (13:27)
[2016-07-23] MEDS ORDERED: GEMF600T PO (09:33)
== END 2016-06-15 13:31 | disposition home or self-care (01) ==
LOC: NEPD 12:20
DX: M54.5 Low back pain (principal); G89.29 Other chronic pain
CPT/HCPCS: 99283

== ENCOUNTER 2016-11-30 06:55 | Emergency (ER) | payer OTHER ==
[~2016-11-30] VITALS: Ht 177.8 cm; Wt 113.5 kg
[~2016-11-30 06:55] MED LIST changes: -CARV6.25 PO; +CARV6.252 PO; +HYDR-3535 PO; +MAPA325T PO; +ROBA750T PO; +TRAM50TA PO; -insulin needles SQ
[2016-11-30 06:57] VITALS: BP 124/86; PULSE 71; RESP 16; TEMP 97.8; O2SAT 96
[2016-11-30] MEDS ORDERED: PENI500T PO (07:42)
[2016-11-30] MEDS ORDERED: ROBA750T PO (07:42)
[2016-11-30] MEDS ORDERED: TRAM50TA PO (07:42)
--- NOTE | 2016-11-30 07:58 | PD ---
HPI Chief Complaint: Oral / Dental Pain or Problem Time Seen by Provider: 07:33 Travel History International Travel<30 days: No Contact w/Intl Traveler<30days: No Traveled to known affect area: No History of Present Illness HPI 51-year-old with history of diabetes, hypertension, and chronic back pain male presents to the emergency room for evaluation of 2 separate complaints. First complaint is right upper dental pain for the past week and dental swelling for the past 2 days. Patient reports associated foul tasting drainage yesterday but denies fever, chills, nausea, and vomiting. He took 2 of his mother's Tylenol with codeine yesterday which moderately relieved his symptoms. He does not have a dentist. Second complaint is acute exacerbation of chronic back pain. Patient reports he has spinal stenosis and several bulging discs. He was sweeping the floor of his [employer]ianism recently and that may have exacerbated his pain. He denies saddle anesthesia, loss of bowel or bladder control, or worsening lower extremity paresthesias. Patient has diabetic neuropathy. He has been ambulatory but with pain. PFSH Past Medical History Hx Anticoagulant Therapy: Yes (ASA 81MG) Asthma: Yes Heart Rhythm Problems: Yes Cancer: No Cardiac Catheterization: Yes Cardiovascular Problems: Yes High Cholesterol: Yes Chest Pain: Yes Coronary Artery Disease: Yes Diabetes: Yes Diminished Hearing: No Endocrine: Yes Gastrointestinal Disorders: No Glaucoma: No Genitourinary: No Hepatitis: No Hiatal Hernia: No Herniated Disk: Yes Hypertension: Yes Immune Disorder: No Musculoskeletal: Yes (spinal stenosis) Neurologic: Yes (neuropathy) Psychiatric: No Reproductive: No Respiratory: Yes Integumentary: No Myocardial Infarction: Yes Thyroid Disease: No Past Surgical History Coronary Artery Bypass Graft: No Thoracic Surgery: No Other Surgery: Yes (back) Social History Alcohol Use: No Tobacco Use: No Substance Use: No Allergies-Medications (Allergen,Severity, Reaction): Coded Allergies: bacitracin (Unverified Allergy, Severe, ears swelling, itch, , 11/30/16) Cortisporin otic ceftriaxone (Unverified Allergy, Severe, Rash, 11/30/16) fluticasone (Unverified Allergy, Severe, HIVE,ITCH, 11/30/16) fluticasone furoate (Unverified Allergy, Severe, HIVE,ITCH, 11/30/16) hydrocortisone (Unverified Allergy, Severe, ears swelling, itch, , ) Cortisporin otic neomycin (Unverified Allergy, Severe, ears swelling, itch, , 11/30/16) Cortisporin otic polymyxin B (Unverified Allergy, Severe, ears swelling, itch, , 11/30/16) Cortisporin otic salmeterol (Unverified Allergy, Severe, HIVE,ITCH, 11/30/16) sulfamethoxazole (Unverified Allergy, Severe, Rash, 11/30/16) trimethoprim (Unverified Allergy, Severe, Rash, 11/30/16) Reported Meds & Prescriptions Reported Meds & Active Scripts Active Penicillin V Potassium 500 Mg Tab 500 Mg PO Q6H 10 Days Tramadol (Tramadol HCl) 50 Mg Tab 50 Mg PO Q6H PRN Robaxin (Methocarbamol) 750 Mg Tab 750 Mg PO Q6HR Carvedilol 6.25 Mg Tab 6.25 Mg PO BID Novolin 70-30 Inj (Insulin Human Isoph/Insulin Regular) 1,000 Unit/10 Ml Vial 50 Units SQ DAILY 30 Days Atorvastatin (Atorvastatin Calcium) 80 Mg Tab 80 Mg PO HS Gemfibrozil 600 Mg Tab 600 Mg PO BIDAC Take 30 minutes prior to breakfast and dinner. Norvasc (Amlodipine Besylate) 10 Mg Tab 10 Mg PO DAILY Lisinopril 40 Mg Tab 40 Mg PO DAILY Gabapentin 600 Mg Tab 1,200 Mg PO TID Ventolin Hfa 18 GM Inh (Albuterol Sulfate) 90 Mcg/Act Aer 2 Puff INH Q6H PRN Reported Mapap (Acetaminophen) 325 Mg Tab 650 Mg PO Q4-6H PRN Aspirin 81 Mg Chew 81 Mg CHEW DAILY Novolin 70-30 Inj (Insulin Human Isoph/Insulin Regular) 1,000 Unit/10 Ml Vial 30 Units SQ HS Review of Systems Except as stated in HPI: all other systems reviewed are Neg Physical Exam Narrative GENERAL: Well-nourished, well-developed male in no acute distress. Afebrile. Ambulatory. HEAD: Normocephalic. EYES: No scleral icterus. No injection or drainage. NECK: Supple, trachea midline. No JVD or lymphadenopathy. DENTAL: Moderate decay throughout. No malocclusion. No obvious abscess. No submental, submandibular, or buccal induration. Mild right-sided facial swelling. Extreme tenderness to palpation of tooth #and surrounding area. CARDIOVASCULAR: Regular rate and rhythm without murmurs, gallops, or rubs. RESPIRATORY: Breath sounds equal bilaterally. No accessory muscle use. BACK: Mild midline tenderness. No obvious deformity. No CVA tenderness. Data Data Last Documented VS Vital Signs Date Time Temp Pulse Resp B/P (MAP) Pulse Ox O2 Delivery O2 Flow Rate FiO2 11/30/16 06:57 97.8 71 16 124/86 (99) 96 Room Air MDM Medical Decision Making Medical Screen Exam Complete: Yes Emergency Medical Condition: Yes Medical Record Reviewed: Yes Differential Diagnosis Back strain, dentalgia, dental abscess, degenerative disc disease, chronic pain Narrative Course 51-year-old male presents to the emergency room for evaluation of 2 separate complaints; acute exacerbation of chronic back pain and dental abscess. Patient has been and seen multiple times in the past for both complaints. States dental pain as been ongoing for 1 week with associated dental swelling and treated her for the past 2 days. No systemic signs of infection. Physical exam reveals mild right-sided facial edema without obvious abscess to drain. There is moderate decay throughout. Extreme tenderness to palpation around tooth #7. Exacerbation of back pain has been ongoing for about 1 week. It started after sweeping up floors in a [employer]. No red flag symptoms. No focal neurological deficits. Patient used to follow with Dr. Torrez but has been referred to [facility]. He'll be given short course of tramadol and Robaxin. He'll be given penicillin for dental abscess. Patient was given dental emergencies handout and told to follow-up with the dentist or return for worsening symptoms. He understands and agrees to plan. Diagnosis Primary Impression: Dental abscess Additional Impression: Acute exacerbation of chronic low back pain Referrals: [facility] Additional Instructions: Rest and drink plenty of fluids. [place] your teeth twice daily. Penicillin as directed, until gone. Tramadol and Robaxin as directed, as needed for low back pain. Do not drink alcohol or drive while taking these medications. Follow-up with a dentist. Return to the emergency room for worsening symptoms. Med/Other Pt SpecificInfo: Prescription(s) given Scripts Penicillin V Potassium (Penicillin V Potassium) 500 Mg Tab 500 MG PO Q6H for Infection for 10 Days, #40 TAB 0 Refills Prov: Gali Parrish MD 11/30/16 Tramadol (Tramadol) 50 Mg Tab 50 MG PO Q6H Y for PAIN, #10 TAB 0 Refills Prov: Gali Parrish MD 11/30/16 Methocarbamol (Robaxin) 750 Mg Tab 750 MG PO Q6HR for Muscle Spasm, #15 TAB 0 Refills Prov: Gali Parrish MD 11/30/16 Disposition: 01 DISCHARGE HOME Condition: Stable Kiley Cruz Nov 30, 2016 07:57
== END 2016-11-30 08:15 | disposition home or self-care (01) ==
LOC: NEPK 06:55
DX: K04.7 Periapical abscess without sinus (principal); M54.5 Low back pain; G89.29 Other chronic pain; E11.40 Type 2 diabetes mellitus with diabetic neuropathy, unspecified; I10 Essential (primary) hypertension; Z79.4 Long term (current) use of insulin
CPT/HCPCS: 99284